=== PATIENT | female | born 1980 | race Caucasian/White ===

== ENCOUNTER 2017-07-08 06:55 | Emergency (ER) | payer MEDICAID ==
[~2017-07-08] VITALS: Ht 157.5 cm; Wt 108.0 kg
[~2017-07-08 06:55] MED LIST: CYCL-1 PO
[2017-07-08 07:06] VITALS: BP 134/81
[2017-07-08 08:02] LABS: URINE HCG NEGATIVE (NEG)
[2017-07-08 08:03] LABS: CLARITY,URINE SLIGHTLY CLOUDY (Clear); COLOR,URINE YELLOW (Yellow); GLUCOSE, URINE NEGATIVE (Neg); KETONES,URINE TRACE mg/dl (Neg); LEUKOCYTE ESTERASE ,URINE NEGATIVE (Neg); NITRITES, URINE NEGATIVE (Neg); OCCULT BLOOD,URINE NEGATIVE (Neg); PH,URINE 5.5 (4.8-8.0); PROTEIN,URINE NEGATIVE (Neg); UROBILINOGEN,URINE 0.2 E.U/dL (0.2-1.0)
[2017-07-08 08:04] LABS: UA COLLECTION TYPE CLN CATCH MIDSTREAM
[2017-07-08 08:09] LABS: BACTERIA,URINE 1+ /HPF (Neg); MUCUS STRANDS NONE SEEN /LPF (Neg); RBC,URINE 0-2 /HPF (0-2); SQUAMOUS EPITHELIAL CELL,UR MODERATE /LPF (FEW); WBC,URINE 0-4 /HPF (0-4)
[2017-07-08] MEDS ORDERED: azithromycin 250mg tablet PO ONE (09:10)
[2017-07-08] MEDS ORDERED: ondansetron 4mg rapidly disintigrating tab PO ONE (09:10)
[2017-07-08] MEDS ORDERED: CefTRIAXone 250MG IM Kit w/LIDOcaine IM ONE (09:10)
[2017-07-08] MEDS ORDERED: METR500T4 PO (09:55)
[2017-07-08] MEDS ORDERED: FLUC150T PO (09:55)
== END 2017-07-08 10:02 | disposition home or self-care (01) ==
LOC: ER 06:55
DX: N76.0 Acute vaginitis (principal); B37.3 Candidiasis of vulva and vagina; Z79.899 Other long term (current) drug therapy
CPT/HCPCS: 36415; 81001; 81025; 87210; 87491; 87591; 96372; 99284; J0696